=== PATIENT | male | born 1965 | race Caucasian/White ===

== ENCOUNTER 2021-02-01 12:50 | Inpatient (IN) | payer MEDICAID, SELFPAY ==
[~2021-02-01] VITALS: Ht 180.3 cm; Wt 96.2 kg
[2021-02-01 12:52] VITALS: BP 149/71
--- NOTE | 2021-02-01 13:01 | NUR ---
PT AMBULATED TO BED 12 AT THIS TIME
[2021-02-01] MEDS ORDERED: MORPHINE SULFATE 4 MG/ML SYR IVP ONE (13:15)
[2021-02-01] MEDS ORDERED: NACL 0.9% 1,000 ML IV ONE (13:15)
[2021-02-01] MEDS ORDERED: ONDANSETRON 4 MG/2 ML VIAL IVP ONE (13:15)
--- NOTE | 2021-02-01 13:20 | NUR ---
55 Y/O M BIB SELF FROM HOME, C/O ABD PAIN, BRIGHT RED BLOOD IN STOOL AND EMESIS THAT STARTED YESTERDAY. PT STATES DIARRHEA X 1 WEEK AND REPORTS 2 EPISODES OF BLOODY EMESIS TODAY. PATIENT STATES ALCOHOL INTAKE >3X/WEEK AND STATES TYLENOL WITH MINOR RELIEF TO PAIN. SKIN APPEARS JAUNDICE WITH SCELERA YELLOW, CONJUNCTIVA RED. PT DENIES FEVER, CHILLS, SOB, CP, DYSURIA. BED LOCKED IN LOWEST POSITION, SIDE RAILS X 1. PMH: DENIES NKA MED: UNABLE TO RECALL
--- NOTE | 2021-02-01 13:35 | NUR ---
Blood sample handed to CPT Fadumo
--- NOTE | 2021-02-01 13:45 | NUR ---
Patient transported to [facility] by [facility].
[2021-02-01 13:53] LABS: BASOPHILS % (AUTO) 0.3 % (0.0-2.0); EOSINOPHILS # (AUTO) 0.1 K/uL (0-0.4); EOSINOPHILS % (AUTO) 0.8 % (0.0-4.0); HEMATOCRIT 32.4 % (36-52); HEMOGLOBIN 11.4 g/dL (12.0-18.0); LYMPHOCYTES # (AUTO) 1.2 K/uL (2.0-11.5); LYMPHOCYTES % (AUTO) 17.2 % (20.5-51.1); MEAN CORPUSCULAR HEMOGLOBIN 35 pg (27-31); MEAN CORPUSCULAR HGB CONC 35 g/dL (33-37); MEAN CORPUSCULAR VOLUME 99.6 fL (80-94); MONOCYTES # (AUTO) 0.8 K/uL (0.8-1.0); NEUTROPHILS # (AUTO) 5.1 K/uL (1.8-7.7); NEUTROPHILS % (AUTO) 70.7 % (42.2-75.2); PLATELET COUNT (AUTO) 140 K/uL (140-450); RED BLOOD CELL COUNT(AUTO) 3.26 MIL/uL (4.20-6.10); RED CELL DISTRIBUTION WIDTH 19.2 % (11.6-13.7); WHITE BLOOD COUNT (AUTO) 7.2 K/uL (4.8-10.8)
[2021-02-01 14:03] LABS: ALBUMIN 2.1 g/dL (3.4-5.0); ANION GAP 12.1 (8-16); CARBON DIOXIDE 27.8 mmol/L (21-32); CREATININE 0.7 mg/dL (0.6-1.3); POTASSIUM 3.9 mmol/L (3.5-5.1); TOTAL BILIRUBIN 16.4 mg/dL (0.0-1.0)
[2021-02-01] MEDS ORDERED: PANTOPRAZOLE 40 MG INJ VIAL IVP ONE (14:05)
[2021-02-01] MEDS ORDERED: PANTOPRAZOLE 40 MG INJ VIAL ONE (14:08)
[2021-02-01 14:16] LABS: PROTHROMBIN TIME 17.6 secs (10.8-13.4)
[2021-02-01] MEDS: PANTOPRAZOLE 80 MG in NACL 0.9% 100 ML IVP SCH (14:45)
--- NOTE | 2021-02-01 14:46 | NUR ---
PT STATES POSITIVE RELIEF TO PAIN; 6/10 DENIES NAUSEA AT THIS TIME.
[2021-02-01 15:49] LABS: APPEARANCE,URINE CLEAR (CLEAR); BILIRUBIN,URINE 3+ (NEGATIVE); BLOOD, URINE NEGATIVE (NEGATIVE); NITRITE, URINE NEGATIVE (NEGATIVE); PH,URINE 6.5 (5.0-9.0); UGLUCOSE 1+ (NEGATIVE)
[2021-02-01 15:52] LABS: COLOR,URINE AMBER (YELLOW)
[2021-02-01 16:09] LABS: BARBITURATE, URINE NEGATIVE ng/ml (NEG <=200); BENZODIAZEPINE, URINE NEGATIVE ng/mL (NEG <=200); CANNABINOID, URINE NEGATIVE ng/mL (NEG <=50); COCAINE, URINE NEGATIVE ng/mL (NEG <=300); OPIATE, URINE POSITIVE ng/mL (NEG <=2000); PHENCYCLIDINE SCREEN,URINE NEGATIVE ng/mL (NEG <=25)
[2021-02-01 16:12] LABS: LEUKOCYTE ESTERASE ,URINE NEGATIVE (NEGATIVE); RBC,URINE NONE SEEN /HPF (0-5); WBC,URINE NONE SEEN /HPF (0-5)
--- NOTE | 2021-02-01 17:57 | NUR ---
Report given to MARIA GUADALUPE Gannon
--- NOTE | 2021-02-01 18:07 | NUR ---
RECEIVED PATIENT FROM ER VIA GURNEY. PATIENT IS A&O X4. AMBULATORY. RESPIRATIONS EVEN AND UNLABORED ON ROOM AIR. NO S/S OF DISTRESS. NO COMPLAINTS OF PAIN. IV SITE IS A 20G AT THE LEFT AC; DRY, PATENT, INTACT. ALL SAFETY PRECAUTIONS IN PLACE.
--- NOTE | 2021-02-01 18:15 | NUR ---
Patient will be admitted to care of Dr. Allison. Admited to Telemetry. Will go to room 106B. Belongings list completed. Report to MARIA GUADALUPE Gannon
--- NOTE | 2021-02-01 19:19 | NUR ---
ENDORSED PATIENT TO EXTRAS CASTING DIRECTOR RN FOR CONTINUITY OF CARE. PATIENT IS STABLE.
--- NOTE | 2021-02-01 19:20 | NUR ---
RECEIVED PATIENT FROM MARIA GUADALUPE GARCIA. AAOX4. NO ACUTE DISTRESS. ALL SAFETY MEASURES ARE IN PLACE CALL LIGHT WITHIN REACH. ON PROTONIX DRIP AT 10 ML/HR. WILL CONTINUE TO MONITOR.
[2021-02-01] MEDS ORDERED: SODIUM PHOS / POTASSIUM PHOS 1 PKT PDR PO PRN (23:40)
[2021-02-01] MEDS ORDERED: ONDANSETRON 4 MG/2 ML VIAL IM/IVP PRN (23:40)
[2021-02-01] MEDS ORDERED: HYDROcodone/APAP 5/325 MG 1 TAB TAB PO PRN (23:40)
[2021-02-01] MEDS ORDERED: DOCUSATE SODIUM 100 MG GELCAP PO PRN (23:40)
[2021-02-01] MEDS ORDERED: NACL 0.9% 1,000 ML IV SCH (23:40)
[2021-02-01] MEDS ORDERED: ACETAMINOPHEN 325 MG TAB PO PRN (23:40)
[2021-02-01] MEDS ORDERED: MAGNESIUM OXIDE 400 MG TAB PO PRN (23:40)
[2021-02-01] MEDS ORDERED: POTASSIUM CHLORIDE 10 MEQ TABER PO PRN (23:40)
[2021-02-01] MEDS ORDERED: MORPHINE SULFATE 2 MG/ML SYR IVP PRN (23:40)
[2021-02-02] VITALS: BP 116/74
[2021-02-02] MEDS ORDERED: PANTOPRAZOLE 40 MG INJ VIAL ONE (00:07)
[2021-02-02] MEDS: PANTOPRAZOLE 80 MG in NACL 0.9% 100 ML IVP SCH (00:41)
[2021-02-02 04:00] VITALS: BP 103/70
[2021-02-02 06:48] LABS: BASOPHILS # (AUTO) 0.1 K/uL (0.00-0.22); BASOPHILS % (AUTO) 1.7 % (0.0-2.0); EOSINOPHILS # (AUTO) 0.2 K/uL (0-0.4); HEMATOCRIT 29.2 % (36-52); HEMOGLOBIN 10.2 g/dL (12.0-18.0); LYMPHOCYTES # (AUTO) 1.3 K/uL (2.0-11.5); LYMPHOCYTES % (AUTO) 22.8 % (20.5-51.1); MEAN CORPUSCULAR HEMOGLOBIN 35 pg (27-31); MEAN CORPUSCULAR HGB CONC 35 g/dL (33-37); MEAN CORPUSCULAR VOLUME 100.2 fL (80-94); MONOCYTES # (AUTO) 0.5 K/uL (0.8-1.0); MONOCYTES % (AUTO) 9.8 % (1.7-9.3); NEUTROPHILS # (AUTO) 3.5 K/uL (1.8-7.7); NEUTROPHILS % (AUTO) 62.7 % (42.2-75.2); PLATELET COUNT (AUTO) 114 K/uL (140-450); RED BLOOD CELL COUNT(AUTO) 2.92 MIL/uL (4.20-6.10); RED CELL DISTRIBUTION WIDTH 18.4 % (11.6-13.7); WHITE BLOOD COUNT (AUTO) 5.6 K/uL (4.8-10.8)
[2021-02-02 06:59] LABS: ANION GAP 7.9 (8-16); CARBON DIOXIDE 31.9 mmol/L (21-32); CREATININE 0.8 mg/dL (0.6-1.3); MAGNESIUM 1.9 mg/dL (1.8-2.4); PHOSPHORUS 1.9 mg/dL (2.5-4.9); POTASSIUM 3.8 mmol/L (3.5-5.1); TOTAL BILIRUBIN 14.3 mg/dL (0.0-1.0)
--- NOTE | 2021-02-02 07:30 | NUR ---
ENDORSED TO AM NURSE FOR CONTINUITY OF CARE. PT IS IN STABLE CONDITION.
[2021-02-02 08:00] VITALS: BP_SYST 114; BP_SYST 141; BP_DIAS 65
--- NOTE | 2021-02-02 08:00 | NUR ---
RECEIVED REPORT FROM FOOD MANAGER FOR CONTINUITY OF CARE. PATIENT ALERT AWAKE ORIENTED X4, NOT IN ANY DISTRESS NOTED. WITH IVF ON GOING AND INFUSING WELL, DENIES PAIN AT THIS TIME. ON MONITOR SHOWS SR. NEEDS ATTENDED. WILL CONTINUE TO MONITOR.
[2021-02-02] MEDS ORDERED: MAG SULF 2000 MG/WATER PREMIX 50 ML IV PRN (09:10)
[2021-02-02] MEDS ORDERED: POTASSIUM CHLORIDE 10 MEQ TABER PO PRN (09:10)
--- NOTE | 2021-02-02 09:10 | NUR ---
SEEN BY DR. HICKS, AND ORDER EGD. PATIENT KEEP NPO FOR NOW.
[2021-02-02] MEDS ORDERED: ZOLPIDEM 5 MG TAB PO PRN (09:15)
[2021-02-02] MEDS ORDERED: MORPHINE SULFATE 2 MG/ML SYR IVP PRN (09:15)
[2021-02-02] MEDS ORDERED: HYDROcodone/APAP 5/325 MG 1 TAB TAB PO PRN (09:15)
[2021-02-02] MEDS ORDERED: ACETAMINOPHEN 325 MG TAB PO PRN (09:15)
[2021-02-02] MEDS ORDERED: DOCUSATE SODIUM 100 MG GELCAP PO PRN (09:15)
[2021-02-02] MEDS ORDERED: LORazepam 2 MG/ML VIAL IM/IVP PRN (09:15)
[2021-02-02] MEDS ORDERED: ONDANSETRON 4 MG/2 ML VIAL IM/IVP PRN (09:15)
--- NOTE | 2021-02-02 09:20 | NUR ---
PATIENT SIGNED CONSENT USING THE TRANSLATION PHONE. VERBALIZED UNDERSTANDING.
[2021-02-02] MEDS ORDERED: PHYTONADIONE 10 MG in NACL 0.9% 50 ML IV SCH (09:30)
[2021-02-02] MEDS ORDERED: OCTREOTIDE ACETATE 1.25 MG in NACL 0.9% 250 ML IV SCH (10:00)
[2021-02-02] MEDS: POTASSIUM CHL 20 MEQ/D5-1/2NS 1,000 ML IV SCH ×2 (10:30→23:28)
[2021-02-02 11:45] LABS: THYROID STIMULATING HORMONE 2.86 uIU/mL (0.34-3.74)
[2021-02-02 11:52] LABS: CHOL/HDL RATIO 11.7 (1-4.5)
[2021-02-02 12:00] VITALS: BP 92/63
--- NOTE | 2021-02-02 12:07 | NUR ---
PATIENT RESTING IN BED, DENIES ABDOMINAL PAIN, NO NAUSEA AND VOMITING NOTED. ON SANDOSTATIN DRIP, INFUSING WELL. NOTIFIED MALDONADO REGARDING EGD AND MADE AWARE.
[2021-02-02] MEDS ORDERED: fentaNYL citrate 0.05 MG/ML VIAL ONE (14:56)
[2021-02-02] MEDS ORDERED: MIDAZOLAM 5 MG/5 ML VIAL ONE (14:56)
[2021-02-02] MEDS ORDERED: diphenhydrAMINE 50 MG/ML VIAL ONE (14:56)
--- NOTE | 2021-02-02 15:07 | NUR ---
PATIENT GIS INSTRUCTOR FOR EGD, VITALS STABLE.
[2021-02-02] MEDS ORDERED: fentaNYL citrate 0.05 MG/ML VIAL IVP ONE (15:40)
[2021-02-02] MEDS ORDERED: MIDAZOLAM 2 MG/2 ML VIAL IVP ONE (15:40)
--- NOTE | 2021-02-02 15:47 | NUR ---
DC [age] YRS OLD MALE PATIENT WAS ADMITTED FROM HOME WITH A DX OF JAUNDICE, ABD PAIN. PATIENT HAS A HX OF ALCOHOLIC LIVER CIRRHOSIS. CT ABD/PELVIS SHOWED HEPATOMEGALY WITH FATTY INFILTRATION GALLSTONE , SMALL TO MODERATE ASCITES. CONSULTED WITH GT DR HICKS. DC PLAN TO GO HOME WHEN STABLE CM TO FOLLOW
[2021-02-02 16:00] VITALS: BP 110/72
--- NOTE | 2021-02-02 16:00 | NUR ---
PATIENT BACK FROM SURGERY, IN STABLE CONDITION.
--- NOTE | 2021-02-02 16:32 | NUR ---
PATIENT HAS BEEN SCREENED AND CATEGORIZED HIGH NUTRITION RISK. PATIENT WILL BE SEEN WITHIN 1-2 DAYS OF ADMISSION. 02/02/21-02/03/[address]
--- NOTE | 2021-02-02 18:00 | NUR ---
ADVANCE DIET TO REGULAR, TOLERATING WELL. NO NAUSEA AND VOMITING NOTED. WILL ENDORSE TO THE NEXT SHIFT FOR CONTINUITY OF CARE. PATIENT IN STABLE CONDITION.
--- NOTE | 2021-02-02 19:20 | NUR ---
RECD. PATIENT RESTING IN BED, AWAKE, A/OX4. SLIGHT FACIAL JAUNDICE NOTED. RESPIRATION EVEN AND UNLABORED. IV OF D5 0.45% NS + 20 MEQ KCL INFUSING AT 70 ML/HR LEFT AC G20. SANDOSTATIN INFUSING AT 10 ML/HR, TRANSFERRED BY CHARGE NURSE WEST TO RIGHT HAND G2 IV LINE. WITH SLIGHT ABDOMINAL DISTENTION, VERBALIZED ABLE TO HAVE 3X BM TODAY. ABLE TO AMBULATE INDEPENDENTLY TO THE BR. MEDICATIONS FOR THE NIGHT DISCUSSED WITH PATIENT. VERBALIZED UNDERSTANDING. DENIES PAIN 0/10.
[2021-02-02 20:00] VITALS: BP 121/78
--- NOTE | 2021-02-02 20:00 | NUR ---
Patient's Plan of Care was discussed and reviewed with RICARDO TEJEDA.
[2021-02-02] MEDS: LACTULOSE 20 GM/30 ML UDC PO SCH (21:00)
--- NOTE | 2021-02-02 21:07 | NUR ---
REFUSED TO TAKE LACTULOSE. EXPLAINED IT'S IMPORTANCE BUT STATED HE WILL TAKE IT TOMORROW, HAD ALREADY THREE TIMES BM TODAY.
[2021-02-02] MEDS: PANTOPRAZOLE 40 MG INJ VIAL IVP SCH (22:03)
--- NOTE | 2021-02-02 23:00 | NUR ---
AMBULATED TO BR TO VOID, GAIT STEADY. BACK TO BED AFTER VOIDING.
--- NOTE | 2021-02-03 01:00 | NUR ---
SLEEPING COMFORTABLY IN BED. RESPIRATION EVEN AND UNLABORED.
--- NOTE | 2021-02-03 02:00 | NUR ---
CHECKED PATIENT. LAYING ON HIS LEFT SIDE, COMFORTABLY ASLEEP. RESPIRATION EVEN AND UNLABORED.
[2021-02-03 04:00] VITALS: BP 113/67
--- NOTE | 2021-02-03 04:00 | NUR ---
STILL SLEEPING COMFORTABLY, NO RESPIRATORY DISTRESS NOTED.
--- NOTE | 2021-02-03 06:00 | NUR ---
ABLE TO SLEEP WELL. CONDITION REMAIN STABLE. WILL ENDORSED TO AM SHIFT NURSE FOR CONTINUITY OF CARE.
[2021-02-03 06:43] LABS: BASOPHILS # (AUTO) 0.1 K/uL (0.00-0.22); BASOPHILS % (AUTO) 1.9 % (0.0-2.0); EOSINOPHILS # (AUTO) 0.2 K/uL (0-0.4); EOSINOPHILS % (AUTO) 3.9 % (0.0-4.0); HEMATOCRIT 27.6 % (36-52); HEMOGLOBIN 9.5 g/dL (12.0-18.0); LYMPHOCYTES # (AUTO) 1.1 K/uL (2.0-11.5); LYMPHOCYTES % (AUTO) 22.7 % (20.5-51.1); MEAN CORPUSCULAR HEMOGLOBIN 35 pg (27-31); MEAN CORPUSCULAR HGB CONC 35 g/dL (33-37); MEAN CORPUSCULAR VOLUME 101.3 fL (80-94); MONOCYTES # (AUTO) 0.4 K/uL (0.8-1.0); MONOCYTES % (AUTO) 9.1 % (1.7-9.3); NEUTROPHILS % (AUTO) 62.4 % (42.2-75.2); PLATELET COUNT (AUTO) 124 K/uL (140-450); RED BLOOD CELL COUNT(AUTO) 2.72 MIL/uL (4.20-6.10); RED CELL DISTRIBUTION WIDTH 18.5 % (11.6-13.7); WHITE BLOOD COUNT (AUTO) 4.8 K/uL (4.8-10.8)
[2021-02-03 07:02] LABS: ALBUMIN 1.8 g/dL (3.4-5.0); ANION GAP 10.5 (8-16); CARBON DIOXIDE 27.3 mmol/L (21-32); CREATININE 0.9 mg/dL (0.6-1.3); POTASSIUM 3.8 mmol/L (3.5-5.1); TOTAL BILIRUBIN 13.7 mg/dL (0.0-1.0)
[2021-02-03 07:09] LABS: MAGNESIUM 1.8 mg/dL (1.8-2.4); PHOSPHORUS 2.1 mg/dL (2.5-4.9)
--- NOTE | 2021-02-03 07:11 | NUR ---
PT AWAKE ALERT ON STABLE CONDITION . RECEIVED ENDORSEMENT FROM MEDICAL OBSERVER NURSE FOR CONTUITY OF CARE. ALL SAFETY MEASURE IN PLACE. CALL LIGHT WITH IN EASY REACH.
--- NOTE | 2021-02-03 07:20 | NUR ---
ENDORSED TO AM SHIFT NURSE FOR CONTINUITY OF CARE.
[2021-02-03 08:00] VITALS: BP 111/63
[2021-02-03] MEDS: LACTULOSE 20 GM/30 ML UDC PO SCH (08:37)
[2021-02-03] MEDS: PANTOPRAZOLE 40 MG INJ VIAL IVP SCH (08:37)
--- NOTE | 2021-02-03 08:45 | NUR ---
ROCEPHINE IV GIVEN BY RN. ALL SAFETY MEASURE IN PLACE. CALL LIGHT WITH IN EASY REACH.
--- NOTE | 2021-02-03 08:53 | NUR ---
GIVEN ALL ORAL MEDICATION. RN GIVEN PATOPRAZOLE IVP TOLERATED WELL. ALL SAFETY MEASURE IN PLACE.
[2021-02-03] MEDS ORDERED: THIAMINE 100 MG TAB PO SCH (09:00)
--- NOTE | 2021-02-03 11:19 | NUR ---
RECEIVED REPORT FROM LAB FOR POSITIVE MRSA NARES. PROTOCOL IN PLACE AND INFORM AND EDUCATE PT.
--- NOTE | 2021-02-03 11:27 | NUR ---
02/03/21 RD INITIAL ASSESSMENT COMPLETED PLEASE REFER TO NUTRITION ASSESSMENT UNDER CARE ACTIVITY FOR ESTIMATED NUTRITIONAL NEEDS. 1.RECOMMEND 2GM NA DIET 2. RD TO FOLLOW-UP 3-5 DAYS, MODERATE RISK REVIEWED BY PIPO CARVAJAL RD
[2021-02-03] MEDS ORDERED: PANT40EC PO (12:37)
[2021-02-03] MEDS ORDERED: MUPI2CRE22 NS (12:37)
[2021-02-03] MEDS ORDERED: THIA-34 PO (12:37)
[2021-02-03] MEDS ORDERED: CHLO118S2 TP (12:37)
[2021-02-03] MEDS ORDERED: LACT10SO11 PO (12:37)
[2021-02-03] MEDS ORDERED: CHLORHEXADINE GLUC 2% CLOTH TP SCH (13:00)
[2021-02-03] MEDS ORDERED: MUPIROCIN CA NASAL 2% 1GM TUBE NS SCH (13:00)
[2021-02-03 13:41] LABS: T4 (THYROXINE) 5.9 ug/dL (4.5 - 12.0)
--- NOTE | 2021-02-03 14:00 | NUR ---
PT ALERT AND ORIENTED ON STABLE CONDITION. GIVEN DISCHARGE INSTRUCTION AND PACKET. VERBALIZED UNDERSTANDING. NAME TAG REMOVED AND IV REMOVED WITH CATHETER INTACT. ALL BELONGING TAKEN BY PTT. ACCOMPANIED PT TO AMBULATE TO LOBBY TO THEIR PRIVATE.
== END 2021-02-03 14:00 | disposition home or self-care (01) | DRG 241 ==
LOC: MED 12:50 → UNDOADMIN 14:28 → MMU 14:28 → MTU 14:28 → MMU 17:34 → MTU 17:34 → MED 21:00
PROVIDERS: ADMIT Hospitalist; ATTEND Hospitalist
PROC: 0DB68ZX Excision of Stomach, Via Natural or Artificial Opening Endoscopic, Diagnostic (ICD-10-PCS; principal; 2021-02-02 15:15)
DX: K25.4 Chronic or unspecified gastric ulcer with hemorrhage (principal); G92.9 Unspecified toxic encephalopathy; E43 Unspecified severe protein-calorie malnutrition; J90 Pleural effusion, not elsewhere classified; K70.31 Alcoholic cirrhosis of liver with ascites; E83.39 Other disorders of phosphorus metabolism; F10.129 Alcohol abuse with intoxication, unspecified; D50.0 Iron deficiency anemia secondary to blood loss (chronic); E86.0 Dehydration; Z20.822 Contact with and (suspected) exposure to COVID-19; K26.4 Chronic or unspecified duodenal ulcer with hemorrhage; E78.1 Pure hyperglyceridemia; J98.11 Atelectasis; Y90.0 Blood alcohol level of less than 20 mg/100 ml; K76.0 Fatty (change of) liver, not elsewhere classified; K80.80 Other cholelithiasis without obstruction; K40.20 Bilateral inguinal hernia, without obstruction or gangrene, not specified as recurrent; Z68.29 Body mass index [BMI] 29.0-29.9, adult
CPT/HCPCS: 36415; 80053; 80305; 81001; 82140; 82272; 83036; 83690; 83735; 83880; 84100; 84134; 84436; 84443; 85025; 85610; 85730; 86677; 86886; 86900; 86901; 87081; 96361; 96374; 96375; 99285; C9113; G0480; G0482; J1200; J2250; J2270; J2354; J2405; J3010; J3430; J7030